=== PATIENT | female | born 1955 | race Asian ===

== ENCOUNTER 2018-06-10 20:44 | Emergency (ER) | payer OTHER ==
[~2018-06-10] VITALS: Ht 152.4 cm; Wt 51.7 kg
[2018-06-10 20:47] VITALS: Ht 152.4 cm; Wt 51.7 kg
[2018-06-10 21:45] LABS: BASOPHIL % 0.5 % (0-2); PLATELET COUNT 250 x10^3mcL (130-400); RED CELL DISTRIBUTION WIDTH 13.6 % (11.5-14.5)
[2018-06-10 21:56] LABS: CALCIUM 8.8 mg/dL (8.5-10.1); CARBON DIOXIDE 27.4 mmol/L (21-32); CHLORIDE SERUM 103 mmol/L (98-107); CREATININE SERUM 0.7 mg/dL (0.6-1.0); GFR1 > 60 mL/min; GLUCOSE SERUM 120 mg/dL (74-106); POTASSIUM SERUM 3.2 mmol/L (3.5-5.1); SODIUM SERUM 141 mmol/L (136-145)
[2018-06-10 22:00] LABS: ALBUMIN 3.9 g/dL (3.4-5.0); ALKALINE PHOSPHATASE 76 U/L (46-116); ALT/SGPT 42 U/L (14-59); AST/SGOT 23 U/L (15-37); BILIRUBIN TOTAL 0.63 mg/dL (0.20-1.00); CHOLESTEROL 157 mg/dL (<200); TOTAL PROTEIN, SERUM 7.9 g/dL (6.4-8.2); TRIGLYCERIDES 95 mg/dL (<150)
[2018-06-10 22:01] LABS: CHOLESTEROL/HDL RATIO 2.4; HDL CHOLESTEROL 65 mg/dL (40-60)
[2018-06-10 22:34] LABS: AMPHETAMINE QUAL UR NONE DETECTED (See below)
[2018-06-11 04:26] VITALS: BP 135/76
== END 2018-06-11 04:26 | disposition short-term general hospital (02) ==
LOC: ED 20:44
PROVIDERS: Emergency Medicine
DX: R07.89 Other chest pain (principal); I24.9 Acute ischemic heart disease, unspecified; I10 Essential (primary) hypertension; E11.9 Type 2 diabetes mellitus without complications; E78.00 Pure hypercholesterolemia, unspecified
CPT/HCPCS: 36415